=== PATIENT | female | born 1945 | race Caucasian/White ===

== ENCOUNTER 2022-08-03 03:03 | Emergency (ER) | payer MEDICARE, SELFPAY ==
[2022-08-03 03:04] VITALS: BP 156/82; PULSE 65; RESP 16; TEMP 36; O2SAT 98; BMI 31.9
[2022-08-03 03:09] VITALS: BP 156/82; PULSE 65; RESP 16; TEMP 36; O2SAT 98
--- NOTE | 2022-08-03 03:33 | EDS_ITS ---
HPI History of Present Illness Chief Complaint: Nosebleed Narrative Narrative: Patient is a 76-year-old female with history of hypertension. She states she was sleeping this evening and then sneezed and then awoke developed bleeding out the right side of the nostril. She states she was bleeding off and on for roughly 1 hour and secondary to this comes to the hospital for evaluation. She states she takes a baby aspirin but denies any blood thinner use. She denies any recent trauma. She denies any trouble breathing or swallowing. However after the bleeding for the past hour she was concerned and presents for evaluation [facility] Medical History Hypertension Allergy/AdvReac Type Severity Reaction Status Date / Time Sulfa (Sulfonamide Allergy Other Verified 08/03/22 03:11 Antibiotics) Surgical History (Updated 08/03/22 @ 03:11 by Dipika Fitch) History of dilatation and curettage History of ear surgery Social History Smoking Status: Never smoker [facility] ED Constitutional Constitutional ED: Denies chills or fever(s) ENT ENT ED: Reports other Details: Positive nosebleed ; Denies sore throat Cardiovascular Cardiovascular: Denies chest pain Respiratory/Chest Respiratory/Chest: Denies cough or dyspnea Gastrointestinal Gastrointestinal: Denies abdominal pain, diarrhea, nausea or vomiting Genitourinary Genitourinary ED: Denies dysuria Musculoskeletal Musculoskeletal: Denies myalgias Integumentary Denies rash Neurologic Neurologic: Denies headache(s) Hematologic/Lymphatic Hematologic/Lymphatic: Denies easy bleeding or easy bruising EXAM Physical Exam Const Vital Signs: 08/03/22 03:04 08/03/22 03:09 Temperature 96.8 F L 96.8 F L Temperature Source Temporal Temporal Pulse Rate 65 65 Respiratory Rate 16 16 Blood Pressure 156/82 H 156/82 H Blood Pressure Mean 106 106 Pulse Ox 98 98 Oxygen Delivery Method Room Air Room Air Positive well nourished and well developed General Appearance ED: well developed HEENT Reports moist mucous membranes HEENT Narrative: Patient has a friable nasal septum mainly on the right but there is no active bleeding present at this time. There is no blood noted in the posterior pharynx. No airway edema or compromise Eyes PERRL and EOMs intact bilaterally Neck supple Resp normal respiratory effort and clear to auscultation bilaterally Cardio regular rate and regular rhythm Extremity normal to inspection Neuro oriented x3 and CN's II-XII intact bilaterally Sensorium / Orientation: alert Psych mental status grossly normal Skin no rashes or lesions noted MDM MDM MDM Narrative Medical decision making narrative: Patient presented to the ER mildly hypertensive but has a past medical history of this. She had no active bleeding present upon arrival either. She is not on any type of anticoagulation other than a once a day baby aspirin. Based on her length of time of bleeding for only 1 hour and the fact that vitals are stable and she has no's diaphoresis change in mental status or hypotension I do not feel there is need for laboratory studies. We discussed possible treatment options for her nosebleeds such as nasal packing nasal epinephrine and nasal cauterization. However at this time there is no active bleeding present and I do not feel there is need to perform these. Patient agrees with this plan. She will be instructed to use Vaseline to the nasal septum at night and [place] nasal spray to keep the septum moist throughout the day but at this time as bleeding has spontaneously resolved and vitals are stable there is no need for further evaluation Discharge Plan Triage Chief Complaint: Nosebleed ED Provider: Ta Donovan Dx/Rx/DC Orders Clinical Impression: Anterior epistaxis Instructions: ED Epistaxis (Adult) Referrals: Eduardo Stone MD [Med Staff - Active Staff] - Activity Restrictions/Additional Instructions: Please place Vaseline inside your nose on the nasal septum at nighttime and use [place] nasal spray throughout the day to keep the septum moist and prevent further nosebleeds. If your nose begins to bleed again hold constant pressure for at least 10 minutes. After this if there is still bleeding hold constant pressure for another 10 minutes. There is still bleeding after 20 minutes of constant pressure please return to the ER for repeat evaluation Disposition Disposition: Home, Self Care
== END 2022-08-03 04:02 | disposition home or self-care (01) ==
PROVIDERS: Emergency Provider Emergency Medicine; Visit Provider Emergency Medicine
DX: R04.0 Epistaxis (principal)
CPT/HCPCS: 99282